=== PATIENT | male | born 1980 | race Caucasian/White ===

== ENCOUNTER 2016-05-29 11:19 | Day surgery (SDC) | payer SELFPAY ==
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
== END 2016-05-29 19:49 | disposition home or self-care (01) ==
LOC: SDC 11:19
PROVIDERS: Orthopaedic Surgery Hand Surgery
PROC: 0PSQ04Z Reposition Left Metacarpal with Internal Fixation Device, Open Approach (ICD-10-PCS; principal; 2016-05-29 11:45)
DX: S62.321A Displaced fracture of shaft of second metacarpal bone, left hand, initial encounter for closed fracture (principal); S62.202A Unspecified fracture of first metacarpal bone, left hand, initial encounter for closed fracture
CPT/HCPCS: 76000; 82962; A9270-GY; C1713; J0690; J1170; J2250; J2405; J2795; J3010; J3370